=== PATIENT | female | born 2000 | race Caucasian/White ===

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

== ENCOUNTER → 2022-07-30 | Outpatient (CLI) | payer OTHER, BC ==
--- NOTE | 2022-07-30 15:19 | US ---
EXAMINATION TYPE: US thyroid st tissue head/neck DATE OF EXAM: 07/30/2022 COMPARISON: NONE CLINICAL HISTORY: E04.2 [id number]. weight loss and fatigue, normal labs GLAND SIZE: Right Lobe: 3.9 x 1.3 x 1.0 cm Overall Parenchyma: homogenous Left Lobe: 3.8 x 1.0 x 0.8 cm Overall Parenchyma: homogeneous Isthmus Thickness: 0.2 cm NODULES RIGHT: # of nodules measured on right: 0 LEFT: # of nodules measured on left: 0 ISTHMUS: # of nodules measured in the isthmus: 0 Bilateral neck scanned, no evidence of lymphadenopathy. IMPRESSION: Unremarkable thyroid ultrasound without discrete nodules.
== END | disposition home or self-care (01) ==
LOC: RADUSWWP 14:55
PROVIDERS: ATTEND Family Medicine
DX: E04.2 Nontoxic multinodular goiter (principal); R63.4 Abnormal weight loss; R53.83 Other fatigue
CPT/HCPCS: 76536